=== PATIENT | female | born 1980 | race Caucasian/White ===

== ENCOUNTER 2020-01-17 16:08 | Inpatient (IN) | payer BC ==
[~2020-01-17] VITALS: Ht 160 cm; Wt 123.4 kg
[2020-01-17 17:13] LABS: BASOPHIL % 1.5 % (0-2); CARBON DIOXIDE 28.4 mmol/L (21-32); CHLORIDE SERUM 104 mmol/L (98-107); CREATININE SERUM 0.9 mg/dL (0.6-1.0); GFR1 > 60 mL/min; GLUCOSE SERUM 96 mg/dL (74-106); PLATELET COUNT 321 x10^3mcL (130-400); POTASSIUM SERUM 4.1 mmol/L (3.5-5.1); RED CELL DISTRIBUTION WIDTH 14.4 % (11.5-14.5); SODIUM SERUM 141 mmol/L (136-145)
[2020-01-17 17:18] LABS: ALBUMIN 3.8 g/dL (3.4-5.0); ALKALINE PHOSPHATASE 104 U/L (46-116); ALT/SGPT 26 U/L (14-59); AST/SGOT 24 U/L (15-37); BILIRUBIN TOTAL 0.5 mg/dL (0.20-1.00); TOTAL PROTEIN, SERUM 6.9 g/dL (6.4-8.2)
[2020-01-17 19:24] LABS: CHOLESTEROL/HDL RATIO 4.6
[2020-01-17 19:53] VITALS: BP 139/81
[2020-01-17 20:05] VITALS: Ht 160 cm; Wt 123.4 kg
[2020-01-18 05:55] VITALS: BP 141/85
[2020-01-18 08:04] VITALS: BP 121/73
[2020-01-18] MEDS ORDERED: DELTASONE20 MG PO (10:39)
[2020-01-18 12:17] VITALS: BP 118/69
[2020-01-18 14:32] VITALS: BP 118/69
== END 2020-01-18 17:09 | disposition home or self-care (01) | DRG 74 ==
LOC: ED 16:08 → MU 18:21 → DU 18:21 → MU 20:20
PROVIDERS: Emergency Medicine; ADMIT Internal Medicine; ATTEND Internal Medicine
DX: G51.0 Bell's palsy (principal); E78.5 Hyperlipidemia, unspecified; Z88.8 Allergy status to other drugs, medicaments and biological substances
CPT/HCPCS: 97116-GP; G0378; J1165; J1885; J7512; J8597